=== PATIENT | male | born 1955 | race Caucasian/White ===

== ENCOUNTER 2019-03-10 11:21 | Emergency (ER) | payer MEDICARE, OTHER ==
[2019-03-10] MEDS ORDERED: Ketorolac 30 MG/ML SDV IVPUSH ONE (11:43)
[2019-03-10] MEDS ORDERED: Sodium Chloride 0.9% 1,000 ML IV ONE ×2 (11:43→14:19)
[2019-03-10] MEDS ORDERED: Ondansetron 4 MG/2 ML SDV IVPUSH ONE (11:44)
[2019-03-10] MEDS ORDERED: Sodium Chloride 0.9% 10 ML Syringe FLUSH PRN (11:44)
[2019-03-10] MEDS ORDERED: Sodium Chloride 0.9% 2.5 ML Syringe FLUSH PRN (11:44)
[2019-03-10] MEDS ORDERED: Ondansetron 4 MG Tab.DIS PO ONE (12:06)
[2019-03-10] MEDS ORDERED: Ondansetron 4 MG Tab.DIS ONE (12:07)
[2019-03-10 12:26] LABS: CARBON DIOXIDE,CO2 24.9 mmol/L (21.0-32.0); POTASSIUM,K 4.5 mmol/L (3.5-5.1)
--- NOTE | 2019-03-10 14:08 | CT ---
INDICATION: Left abdominal and flank pain. COMPARISON: None available TECHNIQUE: CT examination of the abdomen and pelvis was performed without contrast enhancement using 3 mm thick axial sections from the lung bases through the pubic symphysis. Oral contrast was not administered. Please note that all CT scans at this facility use dose modulation, iterative reconstruction, and/or weight-based dosing when appropriate to reduce radiation dose to as low as reasonably achievable. FINDINGS: There is mild soft tissue stranding along the midportion of the left ureter in the inferior abdomen and upper pelvis, without any distinct ureteral dilatation or a ureteral calculus. The findings suggest extravasation of urine from the ureter resulting from recent passage of a calculus. There is no sign of left hydronephrosis, but there is mild prominence of soft tissue stranding in the left perinephric fat consistent with mild pyelo interstitial backflow. Incidental note is made of several parapelvic cysts on the left. There is no sign of left renal mass or cyst. In the abdomen, the unenhanced liver, spleen, pancreas, and adrenals are normal in appearance. Incidental note is made of parapelvic cysts in the right kidney. The right kidney is otherwise normal in appearance with no sign of hydronephrosis or hydroureter. There is no sign of renal or ureteral calculi. The gallbladder is normal in appearance. The abdominal aorta is normal in caliber with no sign of dilatation. There is no sign of retroperitoneal mass or adenopathy. The stomach, loops of small bowel, and colon in the abdomen are normal in appearance. There is a small fat containing periumbilical hernia. In the pelvis, the appendix is normal in appearance with no sign of inflammatory process. There is mild proximal sigmoid diverticulosis without evidence of diverticulitis. The loops of small bowel and colon in the pelvis are otherwise normal in appearance. The prostate is mildly enlarged. It is otherwise normal in appearance. The urinary bladder is normal in appearance. There is no sign of pelvic or inguinal mass or adenopathy. There are small bilateral inguinal hernias containing only fat, direct on the right and indirect on the left. The lung bases are clear. There is mild scoliosis of the inferior lumbar spine convex towards the left. The osseous structures are otherwise normal in appearance for the patient`s age. IMPRESSION: Mild soft tissue stranding in the fat adjacent to the left mid ureter in the inferior abdomen and upper pelvis, with no sign of hydronephrosis, hydroureter, or ureteral calculus. The findings are probably the result of recent passage of a calculus. CT of the abdomen shows mild soft tissue stranding in the left perinephric fat, consistent with recent obstruction. Incidental note is made of parapelvic cysts in both kidneys. CT of the pelvis shows mild proximal sigmoid diverticulosis with no sign of diverticulitis. Small bilateral fat containing inguinal hernias. Mild enlargement of the prostate. Please note that all CT scans at this facility use dose modulation, iterative reconstruction, and/or weight-based dosing when appropriate to reduce radiation dose to as low as reasonably achievable. Dictated by Gagan Randolph MD @ Mar 10 2019 1:55PM Signed by Dr. Gagan Randolph @ Mar 10 2019 2:06PM
[2019-03-10] MEDS ORDERED: Tamsulosin 0.4 MG Cap.ER PO ONE (14:18)
--- NOTE | 2019-03-10 14:56 | EDM.PDOC ---
ED HPI GENERAL MEDICAL PROBLEM - General Chief Complaint: Abdominal Pain Stated Complaint: PAIN IN STOMACH Time Seen by Provider: 03/10/19 11:27 Source of Information: Reports: Patient History Limitations: Reports: No Limitations - History of Present Illness INITIAL COMMENTS - FREE TEXT/NARRATIVE: History of present illness: []Patient started having severe sharp left lower quadrant and flank pain at 8 AM this morning. Patient is nauseated but not vomiting he denies any fevers, chills or diarrhea. Review of systems: As per history of present illness and below otherwise all systems reviewed and negative. Past medical history: As per history of present illness and as reviewed below otherwise noncontributory. Surgical history: As per history of present illness and as reviewed below otherwise noncontributory. Social history: No reported history of drug or alcohol abuse. Family history: As per history of present illness and as reviewed below otherwise noncontributory. Physical exam: General: Well developed, well nourished in NAD HEENT: Atraumatic, normocephalic, pupils reactive, negative for conjunctival pallor or scleral icterus, mucous membranes moist, throat clear, neck supple, nontender, trachea midline. Lungs: Clear to auscultation, breath sounds equal bilaterally, chest nontender. Heart: S1S2, regular, negative for clicks, rubs, or JVD. Abdomen: NABS, Soft, nondistended, left lower quadrant and flank tenderness there is no rebound or guarding on his abdomen.. Negative for masses or hepatosplenomegaly. Negative for costovertebral tenderness. Pelvis: Stable nontender. Genitourinary: Deferred. Rectal: Deferred. Extremities: Atraumatic, negative for cords or calf pain. Neurovascular unremarkable. Neuro: Awake, alert, oriented. Cranial nerves II through XII unremarkable. Cerebellum unremarkable. Motor and sensory unremarkable throughout. Exam nonfocal. Skin:warm and dry Diagnostics: CBC, chemistry, lipase, UA, CT abdomen pelvis without contrast-Mild soft tissue stranding in the fat adjacent to the left mid ureter in the inferior abdomen and upper pelvis, with no sign of hydronephrosis, hydroureter, or ureteral calculus. The findings are probably the result of recent passage of a calculus. Therapeutics: IV hydration, Toradol, Flomax, Zofran ED Course: Improved Impression: Left renal Colic Prescriptions: Flomax tramadol Plan: Follow up with urology Definitive disposition and diagnosis as appropriate pending reevaluation and review of above. Left abdominal Pain Score (Numeric/FACES): 6 - Related Data Allergies Allergy/AdvReac Type Severity Reaction Status Date / Time No Known Allergies Allergy Verified 03/10/19 11:40 Home Meds: Home Meds Tamsulosin HCl [Flomax] 0.4 mg PO DAILY #14 cap.er.24h 03/10/19 [Rx] traMADol HCl [Tramadol HCl] 50 mg PO Q6H PRN #16 tablet 03/10/19 [Rx] Past Medical History - Past Health History Medical/Surgical History: Denies Medical/Surgical History - Infectious Disease History Infectious Disease History: Reports: None - Past Surgical History HEENT Surgical History: Reports: Tonsillectomy Other Musculoskeletal Surgeries/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 Social & Family History - Family History Family Medical History: Noncontributory - Tobacco Use Smoking Status *Q: Never Smoker - Caffeine Use Caffeine Use: Reports: Soda - Recreational Drug Use Recreational Drug Use: No ED ROS GENERAL - Review of Systems Review Of Systems: See Below ED EXAM, GI/ABD - Physical Exam Exam: See Below Course - Vital Signs Last Recorded V/S: Last Vital Signs Temp 96.7 F 03/10/19 11:40 Pulse 77 03/10/19 14:26 Resp 18 03/10/19 14:26 BP 176/83 H 03/10/19 14:26 Pulse Ox 99 03/10/19 14:26 - Orders/Labs/Meds Orders: Active Orders 24 hr Category Date Time Status Sodium Chloride 0.9% [Normal Saline] 1,000 ml Med 03/10/19 14:19 Active IV .Bolus Sodium Chloride 0.9% [Saline Flush] Med 03/10/19 11:44 Active 10 ml FLUSH ASDIRECTED PRN Sodium Chloride 0.9% [Saline Flush] Med 03/10/19 11:44 Active 2.5 ml FLUSH ASDIRECTED PRN Saline Lock Insert [OM.PC] Stat Oth 03/10/19 11:43 Ordered Medication Orders Sodium Chloride (Normal Saline) 1,000 mls @ 999 mls/hr IV .Bolus ONE Stop: 03/10/19 15:19 Last Admin: 03/10/19 14:25 Dose: 999 mls/hr Sodium Chloride (Saline Flush) 10 ml FLUSH ASDIRECTED PRN PRN Reason: Keep Vein Open Sodium Chloride (Saline Flush) 2.5 ml FLUSH ASDIRECTED PRN PRN Reason: Keep Vein Open Labs: Laboratory Tests 03/10/19 03/10/19 03/10/19 Range/Units 11:44 11:52 11:52 WBC 11.08 H (4.0-11.0) K/uL RBC 4.86 (4.50-5.90) M/uL Hgb 15.7 (13.0-17.0) g/dL Hct 46.0 (38.0-50.0) % MCV 94.7 (80.0-98.0) fL MCH 32.3 H (27.0-32.0) pg MCHC 34.1 (31.0-37.0) g/dL RDW Std Deviation 44.3 (28.0-62.0) fl RDW Coeff of Brianna 13 (11.0-15.0) % Plt Count 187 (150-400) K/uL MPV 10.20 (7.40-12.00) fL Neut % (Auto) 80.9 H (48.0-80.0) % Lymph % (Auto) 13.1 L (16.0-40.0) % [place] % (Auto) 5.1 (0.0-15.0) % Eos % (Auto) 0.6 (0.0-7.0) % Baso % (Auto) 0.3 (0.0-1.5) % Neut # (Auto) 9.0 H (1.4-5.7) K/uL Lymph # (Auto) 1.5 (0.6-2.4) K/uL [place] # (Auto) 0.6 (0.0-0.8) K/uL Eos # (Auto) 0.1 (0.0-0.7) K/uL Baso # (Auto) 0.0 (0.0-0.1) K/uL Nucleated RBC % 0.0 /100WBC Nucleated RBCs # 0 K/uL Sodium 144 (136-148) mmol/L Potassium 4.5 (3.5-5.1) mmol/L Chloride 107 (98-107) mmol/L Carbon Dioxide 24.9 (21.0-32.0) mmol/L BUN 16 (7.0-18.0) mg/dL Creatinine 1.6 H (0.8-1.3) mg/dL Est Cr Clr Drug Dosing 45.41 mL/min Estimated GFR (MDRD) 43.5 ml/min Glucose 163 H (74-106) mg/dL Calcium 9.2 (8.5-10.1) mg/dL Total Bilirubin 0.5 (0.2-1.0) mg/dL AST 25 (15-37) IU/L ALT 63 (14-63) IU/L Alkaline Phosphatase 68 (46-116) U/L Total Protein 7.6 (6.4-8.2) g/dL Albumin 4.2 (3.4-5.0) g/dL Globulin 3.4 (2.6-4.0) g/dL Albumin/Globulin Ratio 1.2 (0.9-1.6) Lipase 44 L (73-393) U/L Urine Color YELLOW Urine Appearance CLEAR Urine pH 6.0 (5.0-8.0) Ur Specific [place] 1.025 (1.001-1.035) Urine Protein NEGATIVE (NEGATIVE) mg/dL Urine Glucose (UA) NEGATIVE (NEGATIVE) mg/dL Urine Ketones NEGATIVE (NEGATIVE) mg/dL Urine Occult Blood TRACE-INTACT H (NEGATIVE) Urine Nitrite NEGATIVE (NEGATIVE) Urine Bilirubin NEGATIVE (NEGATIVE) Urine Urobilinogen 0.2 (<2.0) EU/dL Ur Leukocyte Esterase NEGATIVE (NEGATIVE) Urine RBC 0-1 (0-2/HPF) Urine WBC 2-3 (0-5/HPF) Ur Epithelial Cells RARE (NONE-FEW) Amorphous Sediment FEW (NEGATIVE) Urine Bacteria RARE (NEGATIVE) Urine Mucus RARE (NONE-MOD) Meds: Medications Generic Name Dose Route Start Last Admin Trade Name Freq PRN Reason Stop Dose Admin Sodium Chloride 1,000 mls @ 999 mls/hr 03/10/19 14:19 03/10/19 14:25 Normal Saline IV 03/10/19 15:19 999 mls/hr .Bolus ONE Administration Sodium Chloride 10 ml 03/10/19 11:44 Saline Flush FLUSH ASDIRECTED PRN Keep Vein Open Sodium Chloride 2.5 ml 03/10/19 11:44 Saline Flush FLUSH ASDIRECTED PRN Keep Vein Open Discontinued Medications Generic Name Dose Route Start Last Admin Trade Name Freq PRN Reason Stop Dose Admin Sodium Chloride 1,000 mls @ 999 mls/hr 03/10/19 11:43 03/10/19 12:13 Normal Saline IV 03/10/19 12:43 999 mls/hr .Bolus ONE Administration Ketorolac Tromethamine 30 mg 03/10/19 11:43 03/10/19 12:14 Toradol IVPUSH 03/10/19 11:44 30 mg ONETIME ONE Administration Ondansetron HCl 4 mg 03/10/19 11:44 03/10/19 12:36 Zofran IVPUSH 03/10/19 11:45 Not Given ONETIME ONE Ondansetron HCl 4 mg 03/10/19 12:06 03/10/19 12:13 Zofran Odt PO 03/10/19 12:07 4 mg ONETIME ONE Administration Ondansetron HCl Confirm 03/10/19 12:07 03/10/19 12:36 Zofran Odt Administered 03/10/19 12:08 Not Given Dose 4 mg .ROUTE .STK-MED ONE Tamsulosin HCl 0.4 mg 03/10/19 14:18 03/10/19 14:26 Flomax PO 03/10/19 14:19 0.4 mg ONETIME ONE Administration Departure - Departure Time of Disposition: 14:56 Disposition: Home, Self-Care 01 Condition: Good Clinical Impression: Renal colic on left side - Discharge Information *PRESCRIPTION DRUG MONITORING PROGRAM REVIEWED*: No *COPY OF PRESCRIPTION DRUG MONITORING REPORT IN PATIENT JULIETH: No Prescriptions: Tamsulosin HCl [Flomax] 0.4 mg PO DAILY #14 cap.er.24h traMADol HCl [Tramadol HCl] 50 mg PO Q6H PRN #16 tablet PRN Reason: Pain Referrals: PCP,Unknown [Primary Care Provider] - Additional Instructions: The following information is given to patients seen in the emergency department who are being discharged to home. This information is to outline your options for follow-up care. We provide all patients seen in our emergency department with a follow-up referral. The need for follow-up, as well as the timing and circumstances, are variable depending upon the specifics of your emergency department visit. If you don't have a primary care physician on staff, we will provide you with a referral. We always advise you to contact your personal physician following an emergency department visit to inform them of the circumstance of the visit and for follow-up with them and/or the need for any referrals to a consulting specialist. The emergency department will also refer you to a specialist when appropriate. This referral assures that you have the opportunity for follow-up care with a specialist. All of these measure are taken in an effort to provide you with optimal care, which includes your follow-up. Under all circumstances we always encourage you to contact your private physician who remains a resource for coordinating your care. When calling for follow-up care, please make the office aware that this follow-up is from your recent emergency room visit. If for any reason you are refused follow-up, please contact the [facility] Emergency Department at and asked to speak to the emergency department charge nurse. Take meds as directed, follow up with your primary care physician, return to ER if symptoms worsen or change. [facility] - Urology [address] [place] [address] - My Orders Last 24 Hours: My Active Orders 03/10/19 11:43 Saline Lock Insert [OM.PC] Stat 03/10/19 11:44 Sodium Chloride 0.9% [Saline Flush] 10 ml FLUSH ASDIRECTED PRN Sodium Chloride 0.9% [Saline Flush] 2.5 ml FLUSH ASDIRECTED PRN 03/10/19 14:19 Sodium Chloride 0.9% [Normal Saline] 1,000 ml IV .Bolus - Assessment/Plan Last 24 Hours: My Active Orders 03/10/19 11:43 Saline Lock Insert [OM.PC] Stat 03/10/19 11:44 Sodium Chloride 0.9% [Saline Flush] 10 ml FLUSH ASDIRECTED PRN Sodium Chloride 0.9% [Saline Flush] 2.5 ml FLUSH ASDIRECTED PRN 03/10/19 14:19 Sodium Chloride 0.9% [Normal Saline] 1,000 ml IV .Bolus
== END 2019-03-10 15:30 | disposition home or self-care (01) ==
LOC: MW.ED 11:21
DX: N23 Unspecified renal colic (principal); Z98.890 Other specified postprocedural states
CPT/HCPCS: 36415; 74176; 80053; 81001; 83690; 85025; 96361; 96374; 99284; A9270; J1885; J7040; 99283